=== PATIENT | male | born 1970 | race Caucasian/White ===

== ENCOUNTER → 2021-04-30 13:31 | Outpatient (BNVA) | payer SELFPAY | PROVIDERS: Visit Provider Physician Assistant | DX: Z02.79 Encounter for issue of other medical certificate (principal) ==

== ENCOUNTER 2024-04-11 11:56 | Emergency (ER) | payer MEDICAID, SELFPAY ==
--- NOTE | ~2024-04-11 | CT_ITS ---
CLINICAL HISTORY: low back pain CT lumbar spine without contrast Comparison: None Findings: Vertebral alignment is within normal limits. No acute fractures or dislocations. Bilateral pars defects at L5-S1 favored to be chronic. No listhesis. Disc bulge at L5-S1 without significant spinal canal or foraminal stenosis. Normal visualized abdominal contents. IMPRESSION: 1. No acute osseous injury. 2. Bilateral L5-S1 pars defects, likely chronic, without spondylolisthesis. This document has been electronically signed by: Kevyn Cabello MD on 04/11/2024 18:25:28
--- NOTE | ~2024-04-11 | US_ITS ---
EXAMINATION: US DOPPLER VENOUS LOWER EXTREMITY, LEFT CLINICAL INFORMATION: Left lower extremity pain. COMPARISON: None available. TECHNIQUE: Color-flow triplex imaging with spectral analysis and compression Doppler were performed on the left lower extremity. FINDINGS: Respiratory variation, normal compression and augmented flow are noted throughout the left lower extremity. The visualized common femoral vein, superficial femoral vein, profunda femoral vein, popliteal vein and midcalf peroneal and posterior tibial venous segments show no evidence of deep venous thrombosis. There is no Arana's cyst. US/US venous duplex LE LT IMPRESSION: No acute deep venous thrombosis involving the left lower extremity. Negative exam. Electronically signed by: Nilesh Henley MD 04/11/2024 03:11 PM EST
--- NOTE | ~2024-04-11 | CT_ITS ---
CLINICAL HISTORY: left flank pain CT abdomen and pelvis without contrast Comparison: None Findings: Small hiatal hernia. Visualized lungs are clear. Hepatic steatosis. Calcified granuloma in the spleen. Spleen is otherwise normal. Mild peripancreatic haziness. Gallbladder and adrenal glands are within normal limits. No hydronephrosis. No urolithiasis. Colonic diverticulosis without acute inflammation. No bowel obstruction, pneumatosis or pneumoperitoneum. Pelvic contents unremarkable. Normal appendix. The bones are intact. Mild disc bulge at L5-S1 without significant spinal canal or neural foraminal stenosis. Bilateral pars defects at L5-S1, favored to be chronic. IMPRESSION. Mild peripancreatic haziness. Correlate with lipase. Otherwise no acute findings. This document has been electronically signed by: Kevyn Cabello MD on 04/11/2024 18:28:59
[2024-04-11 12:25] VITALS: BP 143/74; PULSE 102; RESP 20; TEMP 37.5; O2SAT 98; BMI 32.9
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
[2024-04-11] MEDS: Ketorolac Tromethamine 30 MG/ML VIAL IM (13:59)
[2024-04-11 15:58] LABS: Basophils Absolute Auto 0.1 X10*3/uL (0.0-0.2); Basophils Percent Auto 0.3 % (0-2); Eosinophils Absolute Auto 0.1 X10*3/uL (0.0-0.4); Eosinophils Percent Auto 0.4 % (0-4); Imm Gran Abs Auto 0.08 X10*3/uL (0.00-0.03); Imm Gran Pct Auto 0.5 % (0.0-0.4); Lymphocytes Absolute Auto 2.1 X10*3/uL (1.2-4.9); Lymphocytes Percent Auto 13.9 % (20-40); MANUAL DIFF FLAG SCAN; Mean Corpuscular HGB Conc 35.6 g/dl (31.0-36.0); Mean Corpuscular Hemoglobin 30.8 pg (27.0-33.0); Mean Corpuscular Volume 86.7 fL (80.0-98.0); Mean Platelet Volume 9.7 fL (9.4-12.4); Monocytes Absolute Auto 1.9 X10*3/uL (0.1-1.2); Monocytes Percent Auto 12.3 % (2-11); Neutrophils Absolute Auto 11.1 x10*3/uL (2.0-8.3); Neutrophils Percent Auto 72.6 % (45-73); Platelet Count 280 X10*3/uL (160-400); Red Blood Count 5.19 X10*6/uL (4.60-5.80); Red Cell Distribution Width 12.1 % (11.0-16.0); SCAN SMEAR FLAG 1; White Blood Count 15.3 X10*3/uL (4.8-10.8)
[2024-04-11 16:21] LABS: Alanine Aminotransferase 34 U/L (0-40); Albumin Level 4.2 g/dL (3.5-5.0); Anion Gap 13 (12-20); Aspartate Amino Transferase 38 U/L (5-37); Bilirubin Total 0.6 mg/dL (0.0-1.0); Blood Urea Nitrogen 11 mg/dL (9-16); Carbon Dioxide 24 mmol/L (22-29); Chloride 106 mmol/L (96-108); Creatinine Clr Calc Pharmacy 106.7; Estimated Glomerular Filt Rate > 60; Glucose Random 100 mg/dL (60-115); Potassium 4.9 mmol/L (3.3-5.1); Sodium 138 mmol/L (135-145); Total Protein 7.8 g/dL (6.5-8.0)
[2024-04-11 16:23] LABS: Alkaline Phosphatase 62 U/L (39-117); Lipase 20 U/L (8-78)
[2024-04-11 16:26] LABS: SLIDE REVIEW VERIFIED
[2024-04-11 16:31] VITALS: RESP 16
[2024-04-11] MEDS: Morphine Sulfate 4 MG/ML CARTRIDGE IVPUSH (16:31)
[2024-04-11] MEDS: ondansetron HCL 4 MG/2 ML VIAL IVPUSH (16:31)
[2024-04-11] MEDS: diazePAM 10 MG/2 ML CARTRIDGE 2.5 MG IVPUSH (16:32)
[2024-04-11] MEDS: methylPREDNISolone Sod Succ 125 MG/2 ML VIAL 60 MG IVPUSH (16:32)
[2024-04-11 17:54] VITALS: BP 106/80; PULSE 90; RESP 13; TEMP 36.7; O2SAT 96
[2024-04-11] MEDS: Morphine Sulfate 10 MG/ML CARTRIDGE 8 MG IVPUSH (19:03)
[2024-04-11 21:56] VITALS: BP 138/83; PULSE 99; RESP 16; TEMP 36.6; O2SAT 97
[2024-04-11 22:00] VITALS: BP 190/79; PULSE 69; RESP 22; O2SAT 97
[2024-04-11] MEDS: methocarbamoL 750 MG TABLET 1500 MG PO (22:19)
[2024-04-11] MEDS: oxyCODONE HCl Immed Release 5 MG TABLET PO (22:19)
[2024-04-11 22:29] VITALS: BP 190/79; PULSE 69; RESP 22; TEMP 36.7; O2SAT 97
== END 2024-04-11 22:29 | disposition home or self-care (01) ==
PROVIDERS: Physician Assistant; Emergency Provider Student in an Organized Health Care Education/Training Program
DX: M54.16 Radiculopathy, lumbar region (principal); M54.50 Low back pain, unspecified; R60.0 Localized edema; M79.662 Pain in left lower leg; R10.2 Pelvic and perineal pain; M79.605 Pain in left leg; Z79.899 Other long term (current) drug therapy
CPT/HCPCS: 36415; 72131; 74176; 80053; 83690; 85025; 93971; 96372; 96374; 96375; 96376; 99283; 99284; J1885; J2270; J2405; J2919; J3360

== ENCOUNTER → 2024-04-11 13:56 | Outpatient (BNV) | payer MEDICAID, SELFPAY | PROVIDERS: Emergency Provider Student in an Organized Health Care Education/Training Program; Visit Provider Radiology Diagnostic Radiology | DX: M54.9 Dorsalgia, unspecified (principal); M79.662 Pain in left lower leg | CPT/HCPCS: 72131; 74176; 93971 ==

== ENCOUNTER 2024-04-27 09:28 | Outpatient (AMB) | payer MEDICAID, SELFPAY ==
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
[2024-04-27 09:38] VITALS: BP 183/111; PULSE 105; BMI 33.3
== END 2024-04-27 10:08 | disposition home or self-care (01) ==
PROVIDERS: PCP Internal Medicine; Referring Provider Nurse Practitioner Family; Visit Provider Registered Nurse Emergency
DX: S46.819A Strain of other muscles, fascia and tendons at shoulder and upper arm level, unspecified arm, initial encounter (principal); M53.3 Sacrococcygeal disorders, not elsewhere classified; M51.369 Other intervertebral disc degeneration, lumbar region without mention of lumbar back pain or lower extremity pain
CPT/HCPCS: 99204

== ENCOUNTER → 2024-04-27 09:28 | Outpatient (BNVA) | payer MEDICAID, SELFPAY | PROVIDERS: PCP Internal Medicine; Referring Provider Nurse Practitioner Family; Visit Provider Registered Nurse Emergency | DX: S46.811A Strain of other muscles, fascia and tendons at shoulder and upper arm level, right arm, initial encounter (principal); M53.3 Sacrococcygeal disorders, not elsewhere classified; M51.360 Other intervertebral disc degeneration, lumbar region with discogenic back pain only; W22.8XXA Striking against or struck by other objects, initial encounter; Y93.9 Activity, unspecified; Y92.9 Unspecified place or not applicable; Y99.9 Unspecified external cause status | CPT/HCPCS: 99212 ==

== ENCOUNTER 2024-05-07 11:48 | Emergency (ER) | payer MEDICAID, SELFPAY ==
--- NOTE | ~2024-05-07 | XR_ITS ---
EXAMINATION: XR LUMBOSACRAL SPINE CLINICAL INFORMATION: pain COMPARISON: Collated to CT dated April 11, 2024. TECHNIQUE: Three views of the lumbosacral spine. FINDINGS: Mild endplate sclerosis throughout the lower thoracic and lower lumbar spine. Bilateral spondylolysis pars interarticulares, L5-S1. No acute cortical disruption or gross malalignment. No lytic or blastic lesions. XR/XR lumbar spine 2-3V IMPRESSION: Spondylolysis pars interarticulares L5-S1 without gross listhesis. Electronically signed by: Nilesh Henley MD 05/07/2024 01:47 PM ADA
--- NOTE | ~2024-05-07 | XR_ITS ---
EXAMINATION: XR CHEST CLINICAL INFORMATION: cough COMPARISON: None available. TECHNIQUE: 2 views of the chest were obtained. FINDINGS: No consolidation, pleural effusion or pneumothorax. No hyperinflation. Cardiomediastinal silhouette size is normal. Osseous structures are intact. XR/XR chest 2V IMPRESSION: No acute airspace disease. Electronically signed by: Nilesh Henley MD 05/07/2024 01:45 PM EST
[2024-05-07 13:22] VITALS: BP 177/99; PULSE 90; RESP 20; TEMP 36.6; O2SAT 98; BMI 30.9
--- NOTE | 2024-05-07 13:23 | ED.GENADULT ---
HPI - General Adult General Chief complaint: Upper Respiratory Symptoms Stated complaint: congestion popped back Time Seen by Provider: 05/07/24 21:35 History of Present Illness ED Provider: Diane ROWLAND narrative: The patient is a 54-year-old man who has felt unwell for about 1 week with a cough and congestion, runny nose, and facial pain. Two days ago he was coughing and he felt a sudden pop in his lower back and he has had a lot of back pain since then. He has had problems with back pain for awhile. He was seen here in the emergency room last month on April 11 and was felt to have a left lumbar radiculopathy. On April 27 he followed up with the Pain [facility] here. He was prescribed topical diclofenac and oral gabapentin. Related Data Previous Rx's ?Medication ?Instructions ?Recorded methocarbamol 750 mg tablet 1,500 mg (2 x 750 mg) PO Q8H PRN 04/11/24 pain, moderate #24 tabs diclofenac sodium 3 % topical gel 1 appl topical BID #100 grams 04/27/24 gabapentin 300 mg capsule 300 mg PO TID #90 caps 04/27/24 amoxicillin 500 mg tablet 500 mg PO TID 7 days #21 tabs 05/07/24 cyclobenzaprine 10 mg tablet 10 mg PO TID PRN back pain #14 tabs 05/07/24 ibuprofen 400 mg tablet 400 mg PO Q6H PRN pain #14 tabs 05/07/24 Allergies Allergy/AdvReac Type Severity Reaction Status Date / Time meloxicam Allergy Unknown Nausea and Verified 05/07/24 13:25 Vomiting [facility] Past Medical History Medical History (Updated 05/07/24 @ 22:03 by Javy Contreras MD) Vertigo Social History Social History (Updated 04/27/24 @ 12:33 by Frieda Meeks APRN, AUTO MECH[employer]ICS TEACHER) Advance Directives: No Advance Directives Information Provided: Yes Do you have a plan to hurt others: No Plan Physical Exam ED Vital Signs: Vital Signs - 24 hr 05/07/24 13:22 05/07/24 21:07 Temperature 97.9 F 97.6 F Pulse Rate 90 79 Respiratory Rate 20 20 Blood Pressure 177/99 H 131/90 H Pulse Oximetry 98 97 Oxygen Delivery Method Room Air Room Air BMI result Body Mass Index 30.9 Course Course Course Narrative: MOISES, this is a rapid medical exam performed by Anurag Sanches please refer to primary provider for complete H&P- 54-year-old male presents for evaluation of cough, flu-like symptoms and lower back pain. He reports his symptoms started 6 days ago. He reports he has been in bed all week. Plan for viral swabs, chest x-ray and lumbar spine x-ray. Medications Administered Discontinued Medications Generic Name Dose Route Start Last Admin Trade Name Freq PRN Reason Stop Dose Admin Acetaminophen 975 mg 05/07/24 15:38 05/07/24 15:41 Acetaminophen 325 Mg Tablet PO 05/07/24 15:39 975 mg ONCE ONE Administration Medical Decision Making Lab Data Labs: Lab Results 05/07/24 Range/Units 14:01 Influenza Type A (PCR) NEGATIVE (Negative) Influenza Type B (PCR) NEGATIVE (Negative) RSV RNA Qual (PCR) NEGATIVE (Negative) SARS-CoV-2 RNA (RT-PCR) NEGATIVE (Negative) Discharge Plan Discharge Clinical Impression: Sinusitis, Low back pain Patient Disposition: Home, Self-Care Additional Instructions: Your chest x-ray does not show a pneumonia or other sign of lung infection. You have tested negative for the flu, COVID, and a virus called RSV. The x-ray of your lower back does not show any misalignment of your vertebra. You has been started on a course of amoxicillin for possible case of sinusitis. Please take this medication 3 times a day as prescribed. Drink lot of fluids. Warm beverages like hot tea or hot broth may be helpful. For pain you may take: 2 extra-strength acetaminophen tablets up to 3 times per day. Ibuprofen every 6 hours as needed. Cyclobenzaprine as a muscle relaxant that may help your low back pain as well. You may take this up to 3 times a day. This medication may make you drowsy. No driving on cyclobenzaprine. You may continue the gabapentin you were previously prescribed. Please follow up with your regular doctors. Also please try to stop smoking. Return to the emergency room if significantly worse. Prescriptions: New amoxicillin 500 mg tablet 500 mg PO TID 7 Days Qty: 21 0RF ibuprofen 400 mg tablet 400 mg PO Q6H PRN (Reason: pain) Qty: 14 0RF cyclobenzaprine 10 mg tablet 10 mg PO TID PRN (Reason: back pain) Qty: 14 0RF No Action methocarbamol 750 mg tablet 1,500 mg PO Q8H PRN (Reason: pain, moderate) Qty: 24 0RF diclofenac sodium 3 % gel 1 appl topical BID Qty: 100 0RF Rx Instructions: apply to most painful area twice daily as needed for pain gabapentin 300 mg capsule 300 mg PO TID Qty: 90 3RF Referrals: [facility] [Provider Group] Samuel Fields MD [Physician] - Print Language: Panamanian
[2024-05-07 15:11] LABS: Influenza A PCR NEGATIVE (Negative); Influenza B PCR NEGATIVE (Negative); Resp Syncy Virus RNA Qual PCR NEGATIVE (Negative); SARS COV2 PCR INHOUSE NEGATIVE (Negative)
[2024-05-07] MEDS: Acetaminophen 325 MG TABLET 975 MG PO ×2 (15:41→22:12)
[2024-05-07 21:07] VITALS: BP 131/90; PULSE 79; RESP 20; TEMP 36.4; O2SAT 97
[2024-05-07] MEDS: Cyclobenzaprine HCl 10 MG TABLET PO (22:12)
[2024-05-07] MEDS: Amoxicillin 500 MG CAPSULE PO (22:12)
[2024-05-07] MEDS: Ketorolac Tromethamine 30 MG/ML VIAL IM (22:12)
[2024-05-07 22:17] VITALS: BP 131/90; PULSE 79; RESP 20; TEMP 36.4; O2SAT 97
== END 2024-05-07 22:18 | disposition home or self-care (01) ==
PROVIDERS: Physician Assistant; Emergency Provider Emergency Medicine
DX: J32.9 Chronic sinusitis, unspecified (principal); M54.50 Low back pain, unspecified; R05.9 Cough, unspecified; R09.89 Other specified symptoms and signs involving the circulatory and respiratory systems; R51.9 Headache, unspecified; Z03.818 Encounter for observation for suspected exposure to other biological agents ruled out
CPT/HCPCS: 0241U; 71046; 72100; 96372; 99283; 99284; J1885

== ENCOUNTER → 2024-05-07 13:24 | Outpatient (BNV) | payer MEDICAID, SELFPAY | PROVIDERS: Visit Provider Radiology Diagnostic Radiology | DX: M54.50 Low back pain, unspecified (principal); R05.9 Cough, unspecified | CPT/HCPCS: 71046; 72100 ==

== ENCOUNTER 2024-06-06 10:31 | Outpatient (AMB) | payer MEDICAID, SELFPAY ==
[2024-06-06 10:33] VITALS: BP 147/96; PULSE 92; O2SAT 99; BMI 31.6
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
== END 2024-06-06 11:04 | disposition home or self-care (01) ==
LOC: HO.PMC 10:32
PROVIDERS: Visit Provider Registered Nurse Emergency
DX: S46.819A Strain of other muscles, fascia and tendons at shoulder and upper arm level, unspecified arm, initial encounter (principal); M53.3 Sacrococcygeal disorders, not elsewhere classified; M51.369 Other intervertebral disc degeneration, lumbar region without mention of lumbar back pain or lower extremity pain
CPT/HCPCS: 99213

== ENCOUNTER → 2024-06-06 10:31 | Outpatient (BNVA) | payer MEDICAID, SELFPAY | PROVIDERS: Visit Provider Registered Nurse Emergency | DX: S46.819D Strain of other muscles, fascia and tendons at shoulder and upper arm level, unspecified arm, subsequent encounter (principal); M53.3 Sacrococcygeal disorders, not elsewhere classified; M51.369 Other intervertebral disc degeneration, lumbar region without mention of lumbar back pain or lower extremity pain | CPT/HCPCS: 99212 ==

== ENCOUNTER 2024-07-04 19:31 | Emergency (ER) | payer MEDICAID, SELFPAY ==
--- NOTE | ~2024-07-04 | US_ITS ---
CLINICAL HISTORY: pain, swelling Venous duplex ultrasound right upper extremity Comparison: None Findings: Accessible deep venous segments are fully compressible with normal Doppler color flow and spectral tracings. IMPRESSION: 1. Negative for right upper extremity deep vein thrombosis. This document has been electronically signed by: David Valero MD on 07/05/2024 00:00:25
--- NOTE | ~2024-07-04 | XR_ITS ---
CLINICAL HISTORY: atraumatic pain 3 view right wrist Comparison: None Findings: Bones intact. No dislocations. No significant loss of joint space, osteophyte, or erosions. No radiopaque foreign body. Mildly diffuse soft tissue swelling. IMPRESSION: 1. No acute fracture This document has been electronically signed by: David Valero MD on 07/05/2024 00:08:09
[2024-07-04 19:36] VITALS: BP 135/101; PULSE 94; RESP 17; TEMP 36.6; O2SAT 98; BMI 32.1
--- NOTE | 2024-07-04 19:37 | ED.GENADULT ---
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 He uses his hands a great deal. He says that several days ago he developed pain and swelling in his left hand. He went to the emergency room at [facility] because of those symptoms and had an x-ray of his hand or wrist which was negative. He was advised to follow up with the specialist, possibly a hand surgeon. He says that since then he has been resting his hand. He has a TENS unit because of back pain. He has been applying the TENS unit to his left arm and has been treating his left arm with the device and he feels that the left hand has gotten a lot better. 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 He had a lot of work to do. By the end of a shift today his right wrist and hand and forearm were hurting a great deal. He developed swelling. He says that the symptoms are similar to what he had experienced in his left arm few days ago only more severe. He comes to the emergency room today because of this right arm pain and swelling. No fever, sweats, chills. No chest pain or shortness of breath. No numbness in the fingers. He indicates that the pain is maximal on the dorsum of the right wrist. He has pain trying to make a fist. He does not have any numbness in the hand or the arm. Related Data Previous Rx's ?Medication ?Instructions ?Recorded methocarbamol 750 mg tablet 1,500 mg (2 x 750 mg) PO Q8H PRN 04/11/24 pain, moderate #24 tabs diclofenac sodium 3 % topical gel 1 appl topical BID #100 grams 04/27/24 amoxicillin 500 mg tablet 500 mg PO TID 7 days #21 tabs 05/07/24 cyclobenzaprine 10 mg tablet 10 mg PO TID PRN back pain #14 tabs 05/07/24 ibuprofen 400 mg tablet 400 mg PO Q6H PRN pain #14 tabs 05/07/24 pregabalin 100 mg capsule (Lyrica) 100 mg PO BID #60 caps 06/06/24 Allergies Allergy/AdvReac Type Severity Reaction Status Date / Time meloxicam Allergy Unknown Nausea and Verified 07/04/24 19:38 Vomiting Review of Systems Review of Systems: Yes all other systems are reviewed and are negative [facility] Past Medical History Medical History (Updated 07/05/24 @ 06:05 by Agustina Mcneill) Vertigo Physical Exam ED Vital Signs: Vital Signs - 24 hr 07/04/24 19:36 07/04/24 20:00 07/04/24 22:00 Temperature 97.9 F 97.8 F 98.3 F Pulse Rate 94 87 88 Respiratory Rate 17 16 16 Blood Pressure 135/101 H 170/101 H 149/80 H Pulse Oximetry 98 99 98 Oxygen Delivery Method Room Air Room Air Room Air BMI result Body Mass Index 32.1 Const Other: The patient is a 54-year-old male who was awake and alert and seems very uncomfortable. He was actually sitting on the floor next to his stretcher with his arms on the stretcher as if to keep his arms elevated. HENMT Other: Face is symmetrical, mucous membranes moist. Eyes General: appearance normal, both eyes and all related structures Neck Neck: Yes normal visual inspection, Yes full ROM and Yes no lymphadenopathy Resp Other: Slight wheezes bilaterally. No increased work of breathing. Cardio Rate: regular rate Rhythm: regular rhythm Heart sounds: S1 normal heart sound present and S2 normal heart sound present Skin Other: There is some generalized swelling to the dorsum of the right hand. No definite swelling to the wrist. Skin is intact. There is no discoloration. Neuro Other: The patient is awake and alert with normal mental status. Cranial nerves are grossly intact. The patient has intact sensation in the right arm and hand. He is able to move the right arm. He has limited motion of the fingers of the right hand but this seemed to be primarily because of pain. He cannot fully close his fist. He cannot fully extend his fingers. However he is able to flex and extend the fingers to a certain range of motion. He is able to flex and extend the wrist through a certain range of motion as well. Extrem Other: The patient has some soft tissue swelling to the dorsum of the right hand of the distal right forearm. There does not seem to be any well localized area of swelling however and does not seem to be any specific joint which is swollen. He can move his right shoulder and his right elbow fairly easily. He has pain when he moves his right wrist and the fingers of the right hand. I do not appreciate any distinct tenderness to the muscles of the forearm. I think all of the forearm compartments seems soft and are not markedly tender. patient seems to have his greatest area of tenderness in the dorsum of the right hand and along the dorsum of the right wrist and distal forearm. Course Course Course Narrative: RME, this is a rapid medical exam performed by Anurag Sanches please refer to primary provider for complete H&P- 54 year old male presents fo revaluation of bilateral hand pain and swelling, right greater than left. He has mild edema to the dorsal left hand and moderate edema to the dorsal right hand. Plan for labs including inflammatory markers Medications Administered Discontinued Medications Generic Name Dose Route Start Last Admin Trade Name Clement PRN Reason Stop Dose Admin Ketorolac Tromethamine 30 mg 07/04/24 22:41 07/04/24 22:46 Ketorolac Tromethamine 30 Mg/Ml Vial IM 07/04/24 22:42 30 mg ONCE ONE Administration Ondansetron HCl 4 mg 07/04/24 23:58 07/05/24 00:05 Ondansetron Odt 4 Mg Tab.Rapdis TRANSLINGU 07/04/24 23:59 4 mg ONCE ONE Administration Medical Decision Making Medical Decision Making [facility] Narrative: The patient is a 54-year-old male who is here for evaluation of pain in the right hand and wrist. 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 He says that he was recently seen at his primary care doctor's office and also at the emergency room at [facility] over the past couple of weeks because of pain in his left wrist and hand. He says that he was given a provisional diagnosis of Dupuytren's contracture and was referred to a hand surgeon. he says that he followed up with his chiropractor who used a TENS unit to the painful area of the left hand and that the patient, who has his own TENS unit at home, continued to treat his left hand with this device at home over the last few days. 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 The patient's pain was such that when I 1st encountered him he was sitting on the floor of the emergency room with his arms on the stretcher as if to elevate the arms. He looked uncomfortable. However the right hand seems to be neurovascularly intact. Compartments of the muscles of the forearm of the right arm did not seem significantly tender or tense to palpation. His pain seems to be primarily in the dorsum of the hand and the wrist. I do not think his description of the symptoms or his physical exam is suggestive of a focal joint arthropathy or septic arthritis or gout. My overall impression is that this seems to be more of an overuse syndrome causing severe pain. the patient has unremarkable labs with regard to his CBC, ESR, and CRP. He has normal renal function. an x-ray of the right wrist is unremarkable. A DVT ultrasound of the right arm is negative. Patient receive limited relief from an injection of ketorolac. He was then given an oxycodone and an IM injection of lorazepam. I 1st I thought he was somewhat better after this but he continued to seem to have great deal of pain and so he was given an IM injection of hydromorphone as well. I placed the patient in a volar splint using Ortho Glass, cast padding, and Yuniel bandages. The patient was observed. Ice was applied. After period of observation I removed this plan to re-evaluate him. Again I felt the compartments of the forearm seemed soft and did not seem to be the region of significant pain or tenderness. Specifically I did not feel that the extensor compartment was obviously a site of tenseness ortenderness. The area of significant pain and tenderness seems to remain the dorsum of the distal forearm, the wrist, and the dorsum of the hand generally. ultimately I felt he was appropriate for discharge to follow-up with orthopedics. He was given a prescription for oxycodone And ibuprofen. He is advised to keep the wrist elevated. He needs to take several days if not longer off work and rest the arm. He was given a sling to help keep the wrist elevated. he should call the orthopedic office in the morning. He should return to the emergency room if significantly worse at any time. Lab Data 07/04/24 19:46 07/04/24 19:46 Labs: Lab Results 07/04/24 Range/Units 19:46 WBC 14.8 H (4.8-10.8) X10*3/uL RBC 4.86 (4.60-5.80) X10*6/uL Hgb 15.0 (14.0-18.0) g/dl Hct 41.2 L (42.0-52.0) % MCV 84.8 (80.0-98.0) fL MCH 30.9 (27.0-33.0) pg MCHC 36.4 H (31.0-36.0) g/dl RDW 12.6 (11.0-16.0) % Plt Count 300 (160-400) X10*3/uL MPV 9.6 (9.4-12.4) fL Immature Gran % (Auto) 0.5 H (0.0-0.4) % Neut % (Auto) 63.9 (45-73) % Lymph % (Auto) 22.6 (20-40) % [place] % (Auto) 10.7 (2-11) % Eos % (Auto) 1.6 (0-4) % Baso % (Auto) 0.7 (0-2) % Lymph # (Auto) 3.4 (1.2-4.9) X10*3/uL [place] # (Auto) 1.6 H (0.1-1.2) X10*3/uL Eos # (Auto) 0.2 (0.0-0.4) X10*3/uL Baso # (Auto) 0.1 (0.0-0.2) X10*3/uL Abs Immat Gran (auto) 0.07 H (0.00-0.03) X10*3/uL Absolute Neuts (auto) 9.5 H (2.0-8.3) x10*3/uL Absolute Nucleated RBC 0.000 (0.0-0.012) X10*3/uL Nucleated RBC % (auto) 0.0 (0.0-0.2) /100WBC Smear Tech's Comments VERIFIED ESR 6 (0-15) MM/HR Sodium 137 (135-145) mmol/L Potassium 4.2 (3.3-5.1) mmol/L Chloride 107 (96-108) mmol/L Carbon Dioxide 25 (22-29) mmol/L Anion Gap 9 L (12-20) BUN 16 (9-16) mg/dL Creatinine 0.90 (0.5-1.4) mg/dL Estim Creat Clear Calc 101.9 Estimated GFR > 60 Random Glucose 100 (60-115) mg/dL Calcium 9.0 (8.4-10.2) mg/dL Total Creatine Kinase 102 (38-174) U/L C-Reactive Protein 0.68 H (< or = 0.50) mg/dL Discharge Plan Discharge Clinical Impression: Right wrist pain Patient Disposition: Home, Self-Care Prescriptions: No Action methocarbamol 750 mg tablet 1,500 mg PO Q8H PRN (Reason: pain, moderate) Qty: 24 0RF amoxicillin 500 mg tablet 500 mg PO TID 7 Days Qty: 21 0RF ibuprofen 400 mg tablet 400 mg PO Q6H PRN (Reason: pain) Qty: 14 0RF cyclobenzaprine 10 mg tablet 10 mg PO TID PRN (Reason: back pain) Qty: 14 0RF diclofenac sodium 3 % gel 1 appl topical BID Qty: 100 0RF Rx Instructions: apply to most painful area twice daily as needed for pain pregabalin [Lyrica] 100 mg capsule 100 mg PO BID Qty: 60 0RF Rx Instructions: Discontinue gabapentin prior to starting this medication Discharge Date/Time: 07/05/24 02:50 Print Language: Moldovan
[2024-07-04 19:52] LABS: Basophils Absolute Auto 0.1 X10*3/uL (0.0-0.2); Basophils Percent Auto 0.7 % (0-2); Eosinophils Absolute Auto 0.2 X10*3/uL (0.0-0.4); Eosinophils Percent Auto 1.6 % (0-4); Hematocrit 41.2 % (42.0-52.0); Imm Gran Abs Auto 0.07 X10*3/uL (0.00-0.03); Imm Gran Pct Auto 0.5 % (0.0-0.4); Lymphocytes Absolute Auto 3.4 X10*3/uL (1.2-4.9); Lymphocytes Percent Auto 22.6 % (20-40); MANUAL DIFF FLAG SCAN; Mean Corpuscular HGB Conc 36.4 g/dl (31.0-36.0); Mean Corpuscular Hemoglobin 30.9 pg (27.0-33.0); Mean Corpuscular Volume 84.8 fL (80.0-98.0); Mean Platelet Volume 9.6 fL (9.4-12.4); Monocytes Absolute Auto 1.6 X10*3/uL (0.1-1.2); Monocytes Percent Auto 10.7 % (2-11); Neutrophils Absolute Auto 9.5 x10*3/uL (2.0-8.3); Neutrophils Percent Auto 63.9 % (45-73); Platelet Count 300 X10*3/uL (160-400); Red Blood Count 4.86 X10*6/uL (4.60-5.80); Red Cell Distribution Width 12.6 % (11.0-16.0); SCAN SMEAR FLAG 1; White Blood Count 14.8 X10*3/uL (4.8-10.8)
[2024-07-04 20:00] VITALS: BP 170/101; PULSE 87; RESP 16; TEMP 36.6; O2SAT 99
[2024-07-04 20:06] LABS: Anion Gap 9 (12-20); Blood Urea Nitrogen 16 mg/dL (9-16); C Reactive Protein 0.68 mg/dL (< or = 0.50); Carbon Dioxide 25 mmol/L (22-29); Chloride 107 mmol/L (96-108); Creatinine Clr Calc Pharmacy 101.9; Estimated Glomerular Filt Rate > 60; Glucose Random 100 mg/dL (60-115); Potassium 4.2 mmol/L (3.3-5.1); Sodium 137 mmol/L (135-145)
[2024-07-04 20:30] LABS: Erythrocyte Sedimentation Rate 6 MM/HR (0-15); SLIDE REVIEW VERIFIED
[2024-07-04 22:00] VITALS: BP 149/80; PULSE 88; RESP 16; TEMP 36.8; O2SAT 98
--- NOTE | 2024-07-04 22:26 | PC.NURSE ---
Patient reports 10/10 pain in b/l hands with edema, patient denies any injury. Patient offered Tylenol for pain management, patient refused Tylenol at this time. Heating packs provided to patient per his request. Patient is awaiting to be seen by ED provider.
[2024-07-04] MEDS: Ketorolac Tromethamine 30 MG/ML VIAL IM (22:46)
--- NOTE | 2024-07-04 22:49 | PC.NURSE ---
Patient medicated with Toradol 30 mg IM.
[2024-07-05] MEDS: Ondansetron ODT 4 MG TAB.RAPDIS TRANSLINGU (00:05)
[2024-07-06 23:39] LABS: A. Phagocytphilium DNA,RT-PCR NOT DETECTED (NOT DETECTED); Babesia Microti DNA, RT-PCR NOT DETECTED (NOT DETECTED); Borrelia Miyamotoi,DNA RT-PCR NOT DETECTED (NOT DETECTED); E.Chaffeensis DNA RT-PCR NOT DETECTED (NOT DETECTED); Lyme(Borrelia ssp)DNA RT-PCR NOT DETECTED (NOT DETECTED)
== END 2024-07-05 02:50 | disposition home or self-care (01) ==
PROVIDERS: Physician Assistant; Emergency Provider Emergency Medicine
DX: M25.531 Pain in right wrist (principal); R60.0 Localized edema; Z79.899 Other long term (current) drug therapy
CPT/HCPCS: 36415; 73110; 80048; 82550; 85025; 85652; 86140; 87468; 87469; 87478; 87484; 87798; 93971; 96372; 99284; J1885

== ENCOUNTER → 2024-07-04 22:39 | Outpatient (BNV) | payer MEDICAID, SELFPAY | PROVIDERS: Emergency Provider Emergency Medicine; Visit Provider Radiology Diagnostic Radiology | DX: M79.621 Pain in right upper arm (principal); R22.31 Localized swelling, mass and lump, right upper limb; M25.531 Pain in right wrist | CPT/HCPCS: 73110; 93971 ==

== ENCOUNTER 2024-07-05 20:24 | Emergency (ER) | payer MEDICAID, SELFPAY ==
--- NOTE | ~2024-07-05 | XR_ITS ---
CLINICAL HISTORY: Pain swelling 3 view left hand Comparison: None Findings: No fractures or dislocations. No significant arthritic change. No erosions. No radiopaque foreign body. Mildly diffuse soft tissue swelling. IMPRESSION: 1. No acute fracture This document has been electronically signed by: David Valero MD on 07/05/2024 21:13:45
--- NOTE | ~2024-07-05 | XR_ITS ---
CLINICAL HISTORY: Pain swelling 4 view left wrist Comparison: None Findings: No fractures or dislocations. No significant arthritic change or erosions. No radiopaque foreign body. Mildly diffuse soft tissue swelling. IMPRESSION: 1. No acute fracture This document has been electronically signed by: David Valero MD on 07/05/2024 21:13:33
[2024-07-05 20:34] VITALS: BP 134/86; PULSE 92; RESP 16; TEMP 36.4; O2SAT 97; BMI 31.8
--- NOTE | 2024-07-05 20:34 | ED_ITS ---
HPI - Extremity Injury (Upper) General Chief Complaint: Extremity Injury, Upper Stated Complaint: left hand and arm swelling; right hand swollen Time Seen by Provider: 07/06/24 01:27 Source: patient Mode of arrival: ambulatory Limitations: no limitations History of Present Illness ED Provider: Rocky Cobb DO HPI narrative: 54-year-old male past medical history of bulging lumbar disc and sacroiliac joint function on the left presents to the ED for swelling and pain of both left and right hand despite taking oxycodone and ibuprofen at home. 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 He has not decreased his workload. He was seen here yesterday and had x-rays that were unremarkable. He has no fevers, chills, nausea, vomiting or pain or swelling of his upper arms. He states his fingers feel tight and tingling. No history of autoimmune disorders or family history of autoimmune diseases. Symptoms have not improved from yesterday. He has been on Augmentin for an ear infection. His symptoms are consistent with that which were documented yesterday from his visit here. Patient states he has not had a tetanus vaccine update in approximately 30 years. Per record review from yesterday he did have labs drawn which showed a mild nonspecific leukocytosis mild elevation of CRP without elevation of ESR. Related Data Previous Rx's ?Medication ?Instructions ?Recorded methocarbamol 750 mg tablet 1,500 mg (2 x 750 mg) PO Q8H PRN 04/11/24 pain, moderate #24 tabs diclofenac sodium 3 % topical gel 1 appl topical BID #100 grams 04/27/24 amoxicillin 500 mg tablet 500 mg PO TID 7 days #21 tabs 05/07/24 cyclobenzaprine 10 mg tablet 10 mg PO TID PRN back pain #14 tabs 05/07/24 ibuprofen 400 mg tablet 400 mg PO Q6H PRN pain #14 tabs 05/07/24 pregabalin 100 mg capsule (Lyrica) 100 mg PO BID #60 caps 06/06/24 prednisone 20 mg tablet 60 mg (3 x 20 mg) PO DAILY 5 days 07/06/24 #15 tabs Allergies Allergy/AdvReac Type Severity Reaction Status Date / Time meloxicam Allergy Unknown Nausea and Verified 07/05/24 20:36 Vomiting Review of Systems Review of Systems: Yes all other systems are reviewed and are negative PMFSH Past Medical History Medical History (Updated 07/06/24 @ 01:51 by Rocky Cobb DO) Vertigo Social History Social History (Updated 04/27/24 @ 12:33 by Frieda Meeks APRN, [employer]) Advance Directives: No Advance Directives Information Provided: Yes Do you have a plan to hurt others: No Plan Physical Exam Vital Signs: Vital Signs: Last Vital Signs Temp 97.3 F 07/06/24 01:50 Pulse 92 07/06/24 01:50 Resp 16 07/06/24 01:50 BP 113/86 07/06/24 01:50 Pulse Ox 97 07/06/24 01:50 O2 Del Method Room Air 07/06/24 01:50 BMI result Body Mass Index 31.8 Constitutional: ?Alert, oriented, speaking in full sentences HEENT: ?Normocephalic, atraumatic. Eyes: ?PERRL, EOMI Neck: ?Supple, nontender Chest: ?No chest wall tenderness Respiratory: no increased work of breathing Cardio: ?2+ radial pulses symmetrically GI: ?nondistended Back: ?Normal range of motion Skin: ?No rash, no lesions Neuro: ?Alert and oriented to person, place and time, moves all 4 extremities, no focal deficits 5/5 strength of the upper extremities symmetrically, sensation fully intact Extremities: ?Patient has equal edema and tightness of all 5 fingers of the bilateral hands which are equally mildly tender to palpation and fair amount of pain elicited with extension of all fingers as well as flexion and extension of the wrist bilaterally. None of these findings tract proximally about the forearms or upper arms. There are no signs of erythema tracking up the arms. Psych: ?Calm, alert and cooperative, appropriate behavior Course Course Course Narrative: This is a Rapid Medical Exam performed in triage by Jessica Kirkpatrick PA-C. Full HPI, ROS and PE to be performed by primary ED provider. 54-year-old male presenting to the ED c/o left hand/wrist pain and swelling x yesterday. Patient was evaluated in our ED last night for similar symptoms on the contralateral side had labs and imaging performed. States he has been taking oxycodone for pain which is helping with the right side however not the left. PE: Bilateral hand swelling noted with mild limited ROM. No erythema or ecchymosis Plan: Left hand x-ray Medications Administered Discontinued Medications Generic Name Dose Route Start Last Admin Trade Name Hoangq PRN Reason Stop Dose Admin Diphtheria/Tetanus/Acell Pertussis 0.5 ml 07/06/24 01:48 07/06/24 02:01 Diphth,Pertus(Acell),Tet Adult 0.5 Ml Syringe IM 07/06/24 01:49 0.5 ml .ONCE ONE Administration Morphine Sulfate 4 mg 07/06/24 01:48 07/06/24 02:02 Morphine Sulfate 4 Mg/Ml Cartridge IM 07/06/24 01:49 4 mg ONCE ONE Administration Protocol Prednisone 60 mg 07/06/24 01:48 07/06/24 02:01 Prednisone 20 Mg Tablet PO 07/06/24 01:49 60 mg ONCE ONE Administration Medical Decision Making Medical Decision Making [facility] Narrative: Patient presenting with cool edema and tightness with discomfort of the bilateral all 5 fingers and hands. This is not consistent with cellulitis. X- ray images of the hand and wrist per my independent interpretation show no acute bony abnormality. Interpreted by Radiology as diffuse swelling. At this time, there are no signs of lymphangitis or systemic symptoms. No signs of flexor tenosynovitis. No other Dangerous etiologies suspected at this time. It is possible that the patient has an autoimmune syndrome as this appears to be dactylitis. We will treat with steroids instead of ibuprofen here and at home. The patient save a 1 time dose of IM morphine. His significant other is driving him home. We will also update his Tdap due to request. He is instructed to follow up with his primary care provider and a lumber marker for further evaluation and return with any worsening or progression of his symptoms. Patient is content with this plan. Discharge Plan Discharge Clinical Impression: Bilateral hand swelling Patient Disposition: Home, Self-Care Additional Instructions: Tdap has been updated today. X-ray imaging showed no fracture. You received a dose of morphine. You received a steroid called prednisone. Please take this daily instead of the ibuprofen. Please attempt to stop tobacco use as this will help your symptoms. Avoid work until your symptoms improve. Follow-up with a lumber marker and your primary care provider. Return with any fevers over 100 degrees F, shaking chills, spreading swelling or redness of your arms or any other acute changes or concerns. Prescriptions: New prednisone 20 mg tablet 60 mg PO DAILY 5 Days Qty: 15 0RF No Action methocarbamol 750 mg tablet 1,500 mg PO Q8H PRN (Reason: pain, moderate) Qty: 24 0RF amoxicillin 500 mg tablet 500 mg PO TID 7 Days Qty: 21 0RF ibuprofen 400 mg tablet 400 mg PO Q6H PRN (Reason: pain) Qty: 14 0RF cyclobenzaprine 10 mg tablet 10 mg PO TID PRN (Reason: back pain) Qty: 14 0RF diclofenac sodium 3 % gel 1 appl topical BID Qty: 100 0RF Rx Instructions: apply to most painful area twice daily as needed for pain pregabalin [Lyrica] 100 mg capsule 100 mg PO BID Qty: 60 0RF Rx Instructions: Discontinue gabapentin prior to starting this medication Referrals: Neel Barkley PA [Physician Dimension Mill Worker] - Print Language: Cymraes
[2024-07-06 01:50] VITALS: BP 113/86; PULSE 92; RESP 16; TEMP 36.3; O2SAT 97
[2024-07-06] MEDS: predniSONE 20 MG TABLET 60 MG PO (02:01)
[2024-07-06] MEDS: Diphth,Pertus(ACell),Tet Adult 0.5 ML SYRINGE IM (02:01)
[2024-07-06] MEDS: Morphine Sulfate 4 MG/ML CARTRIDGE IM (02:02)
[2024-07-06 02:09] VITALS: BP 0/0; PULSE 0; RESP 0; TEMP -17.7; TEMP 0; O2SAT 0
== END 2024-07-06 02:11 | disposition home or self-care (01) ==
LOC: HO.ED 07-06 01:58
PROVIDERS: Emergency Provider Emergency Medicine
DX: L03.012 Cellulitis of left finger (principal); L03.011 Cellulitis of right finger; M25.532 Pain in left wrist; R60.0 Localized edema; Z79.899 Other long term (current) drug therapy; Z23 Encounter for immunization
CPT/HCPCS: 73110; 73130; 90471; 90715; 96372; 99284; J2270

== ENCOUNTER → 2024-07-05 20:41 | Outpatient (BNV) | payer MEDICAID, SELFPAY | PROVIDERS: Visit Provider Radiology Diagnostic Radiology | DX: M25.532 Pain in left wrist (principal); M79.642 Pain in left hand | CPT/HCPCS: 73110; 73130 ==

== ENCOUNTER 2024-09-26 23:17 | Emergency (ER) | payer MEDICAID, SELFPAY ==
--- NOTE | 2024-09-26 | ECG_ITS ---
Test Reason : CP Blood Pressure : */* mmHG Vent. Rate : 105 BPM Atrial Rate : 105 BPM P-R Int : 192 ms QRS Dur : 88 ms QT Int : 330 ms P-R-T Axes : 48 21 32 degrees QTcB Int : 436 ms Sinus tachycardia Otherwise normal ECG No previous ECGs available Referred By: Generic ED Physician Electronically Signed By: CRAIG PRAKASH MD
--- NOTE | ~2024-09-26 | XR_ITS ---
CLINICAL HISTORY: rotator cuff tndonitis 3 view right shoulder Comparison: None provided Findings: No fractures or dislocations. No significant arthritic change. No erosions. No radiopaque foreign body. IMPRESSION: 1. No acute findings This document has been electronically signed by: Robbie Rushing MD on 09/27/2024 02:16:16
[2024-09-26 23:18] VITALS: BP 141/87; PULSE 111; RESP 20; TEMP 37.1; O2SAT 99; BMI 31.3
--- NOTE | 2024-09-26 23:45 | ED.EXTPRO ---
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 as pain is getting worse for last few days got worse earlier today with pain radiating to the anterior part of the chest whenever he moves his item no paresthesia no weakness patient took ibuprofen and oxycodone earlier without much relief has not seen any orthopedics yet Related Data Previous Rx's ?Medication ?Instructions ?Recorded methocarbamol 750 mg tablet 1,500 mg (2 x 750 mg) PO Q8H PRN 04/11/24 pain, moderate #24 tabs diclofenac sodium 3 % topical gel 1 appl topical BID #100 grams 04/27/24 amoxicillin 500 mg tablet 500 mg PO TID 7 days #21 tabs 05/07/24 cyclobenzaprine 10 mg tablet 10 mg PO TID PRN back pain #14 tabs 05/07/24 ibuprofen 400 mg tablet 400 mg PO Q6H PRN pain #14 tabs 05/07/24 pregabalin 100 mg capsule (Lyrica) 100 mg PO BID #60 caps 06/06/24 prednisone 20 mg tablet 60 mg (3 x 20 mg) PO DAILY 5 days 07/06/24 #15 tabs cyclobenzaprine 10 mg tablet 10 mg PO Q8H #20 tabs 09/27/24 ibuprofen 600 mg tablet 600 mg PO Q6H PRN fever or pain 09/27/24 #30 tabs morphine 15 mg immediate release 15 mg PO Q8H PRN pain #15 tabs 09/27/24 tablet prednisone 20 mg tablet 40 mg (2 x 20 mg) PO DAILY #10 tabs 09/27/24 Allergies Allergy/AdvReac Type Severity Reaction Status Date / Time meloxicam Allergy Unknown Nausea and Verified 09/26/24 23:20 Vomiting Review of Systems Review of Systems: Yes all other systems are reviewed and are negative [facility] Past Medical History Medical History Vertigo Social History Social History Advance Directives: No Advance Directives Information Provided: Yes Do you have a plan to hurt others: No Plan Physical Exam Vital Signs: Vital Signs: Last Vital Signs Temp 98.7 F 09/26/24 23:18 Pulse 111 H 09/26/24 23:18 Resp 20 09/26/24 23:18 BP 141/87 H 09/26/24 23:18 Pulse Ox 99 09/26/24 23:18 O2 Del Method Room Air 09/26/24 23:18 BMI result Body Mass Index 31.3 Appearance: Alert. Oriented X3. No acute distress. Eyes: PERRLA, No Nystagmus ENT: Pharynx normal. Oral Mucosa moist Neck: Normal inspection. Neck supple. CVS: Normal heart rate and rhythm. Pulses normal. Respiratory: No respiratory distress. Equal air entry bilateral, no wheezing/rales/rhonchi Abdomen: Soft and nontender. Bowel sounds are present, no mass palpable, no CVA tenderness Skin: Skin warm and dry. Normal skin color. Normal skin turgor. Extremities: No lower extremity edema. 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 No motor deficit. No sensory deficit.No cerebellar signs , cranial nerves II-XII intact Medications Administered Discontinued Medications Generic Name Dose Route Start Last Admin Trade Name Freq PRN Reason Stop Dose Admin Dexamethasone 10 mg 09/27/24 00:09 09/27/24 00:27 Dexamethasone 2 Mg Tablet PO 09/27/24 00:10 10 mg ONCE ONE Administration Morphine Sulfate 15 mg 09/27/24 00:09 09/27/24 00:27 Morphine Sulfate Immed Release 15 Mg Tablet PO 09/27/24 00:10 15 mg ONCE ONE Administration Medical Decision Making Medical Decision Making [facility] Narrative: Patient clinically with the right rotator cuff tendinitis x-ray negative for fracture or dislocation labs are stable will give patient's sling advised to follow with Orthopedics Lab Data [facility] Lab Attestation statement: I reviewed the patient's lab results. 09/26/24 23:57 09/26/24 23:57 Labs: Lab Results 09/26/24 Range/Units 23:57 WBC 15.1 H (4.8-10.8) X10*3/uL RBC 4.70 (4.60-5.80) X10*6/uL Hgb 14.4 (14.0-18.0) g/dl Hct 40.5 L (42.0-52.0) % MCV 86.2 (80.0-98.0) fL MCH 30.6 (27.0-33.0) pg MCHC 35.6 (31.0-36.0) g/dl RDW 12.6 (11.0-16.0) % Plt Count 327 (160-400) X10*3/uL MPV 9.7 (9.4-12.4) fL Immature Gran % (Auto) 0.7 H (0.0-0.4) % Neut % (Auto) 71.8 (45-73) % Lymph % (Auto) 13.0 L (20-40) % [place] % (Auto) 12.9 H (2-11) % Eos % (Auto) 1.1 (0-4) % Baso % (Auto) 0.5 (0-2) % Lymph # (Auto) 2.0 (1.2-4.9) X10*3/uL [place] # (Auto) 1.9 H (0.1-1.2) X10*3/uL Eos # (Auto) 0.2 (0.0-0.4) X10*3/uL Baso # (Auto) 0.1 (0.0-0.2) X10*3/uL Abs Immat Gran (auto) 0.10 H (0.00-0.03) X10*3/uL Absolute Neuts (auto) 10.8 H (2.0-8.3) x10*3/uL Absolute Nucleated RBC 0.000 (0.0-0.012) X10*3/uL Nucleated RBC % (auto) 0.0 (0.0-0.2) /100WBC Smear Tech's Comments VERIFIED Sodium 139 (135-145) mmol/L Potassium 4.7 (3.3-5.1) mmol/L Chloride 104 (96-108) mmol/L Carbon Dioxide 26 (22-29) mmol/L Anion Gap 14 (12-20) BUN 11 (9-16) mg/dL Creatinine 1.15 (0.5-1.4) mg/dL Estim Creat Clear Calc 78.8 Estimated GFR > 60 Random Glucose 104 (60-115) mg/dL Calcium 8.8 (8.4-10.2) mg/dL Total Bilirubin 0.5 (0.0-1.0) mg/dL AST 28 (5-37) U/L ALT 29 (0-40) U/L Alkaline Phosphatase 66 (39-117) U/L Troponin I High Sens < 2.7 (<3.5-35.0) ng/L Total Protein 6.8 (6.5-8.0) g/dL Albumin 4.2 (3.5-5.0) g/dL Independent Interpretation I performed an independent interpretation of an: EKG Interpretation: Sinus tachycardia with heart rate of 105 beats per minute normal interval normal axis no acute ST-T no acute ischemia Radiology Impression Discussion of test interpretation with radiology: I have reviewed the radiologist's reading. Discharge Plan Discharge Clinical Impression: Right rotator cuff tendinitis Patient Disposition: Home, Self-Care Instructions: Rotator Cuff Tendinitis (ED) Additional Instructions: Rest your right shoulder Avoid raising your right arm above head Pain medication and muscle relaxant as advised Follow with Orthopedics Prescriptions: New cyclobenzaprine 10 mg tablet 10 mg PO Q8H Qty: 20 0RF prednisone 20 mg tablet 40 mg PO DAILY Qty: 10 0RF ibuprofen 600 mg tablet 600 mg PO Q6H PRN (Reason: fever or pain) Qty: 30 0RF morphine 15 mg tablet 15 mg PO Q8H PRN (Reason: pain) Qty: 15 0RF Rx Instructions: Partial Fill upon patient request. No Action prednisone 20 mg tablet 60 mg PO DAILY 5 Days Qty: 15 0RF methocarbamol 750 mg tablet 1,500 mg PO Q8H PRN (Reason: pain, moderate) Qty: 24 0RF amoxicillin 500 mg tablet 500 mg PO TID 7 Days Qty: 21 0RF ibuprofen 400 mg tablet 400 mg PO Q6H PRN (Reason: pain) Qty: 14 0RF cyclobenzaprine 10 mg tablet 10 mg PO TID PRN (Reason: back pain) Qty: 14 0RF diclofenac sodium 3 % gel 1 appl topical BID Qty: 100 0RF Rx Instructions: apply to most painful area twice daily as needed for pain pregabalin [Lyrica] 100 mg capsule 100 mg PO BID Qty: 60 0RF Rx Instructions: Discontinue gabapentin prior to starting this medication Referrals: Seun Siu MD [Physician, Orthopedics] Referral Note: r rotator cuff tendonitis Print Language: German
--- NOTE | 2024-09-27 00:02 | PC.NURSE ---
Pt placed on cafeteria monitor- HR 104 Sinus tach. EKG done by tech. Labs drawn by RN. provider at bedside. will continue to monitor.
[2024-09-27 00:09] LABS: Hematocrit 40.5 % (42.0-52.0); Hemoglobin 14.4 g/dl (14.0-18.0); Imm Gran Abs Auto 0.10 X10*3/uL (0.00-0.03); Imm Gran Pct Auto 0.7 % (0.0-0.4); Lymphocytes Absolute Auto 2.0 X10*3/uL (1.2-4.9); MANUAL DIFF FLAG SCAN; Mean Corpuscular HGB Conc 35.6 g/dl (31.0-36.0); Mean Corpuscular Hemoglobin 30.6 pg (27.0-33.0); Mean Corpuscular Volume 86.2 fL (80.0-98.0); NRBC Abs Auto 0.000 X10*3/uL (0.0-0.012); NRBC Pct Auto 0.0 /100WBC (0.0-0.2); Platelet Count 327 X10*3/uL (160-400); Red Blood Count 4.70 X10*6/uL (4.60-5.80); SCAN SMEAR FLAG 1; White Blood Count 15.1 X10*3/uL (4.8-10.8)
[2024-09-27 00:23] LABS: Alanine Aminotransferase 29 U/L (0-40); Albumin Level 4.2 g/dL (3.5-5.0); Alkaline Phosphatase 66 U/L (39-117); Anion Gap 14 (12-20); Aspartate Amino Transferase 28 U/L (5-37); Blood Urea Nitrogen 11 mg/dL (9-16); Calcium 8.8 mg/dL (8.4-10.2); Carbon Dioxide 26 mmol/L (22-29); Chloride 104 mmol/L (96-108); Creatinine Clr Calc Pharmacy 78.8; Estimated Glomerular Filt Rate > 60; Potassium 4.7 mmol/L (3.3-5.1); Sodium 139 mmol/L (135-145); Total Protein 6.8 g/dL (6.5-8.0)
[2024-09-27] MEDS: Morphine Sulfate Immed Release 15 MG TABLET PO (00:27)
[2024-09-27 00:32] LABS: Troponin-I High Sensitivity < 2.7 ng/L (<3.5-35.0)
[2024-09-27 01:18] VITALS: BP 141/87; PULSE 111; RESP 20; TEMP 37.1; O2SAT 99
[2024-09-27 01:20] VITALS: BP 141/87; PULSE 111; RESP 20; TEMP 37.1; O2SAT 99
== END 2024-09-27 01:22 | disposition home or self-care (01) ==
PROVIDERS: Emergency Provider Internal Medicine
DX: M75.101 Unspecified rotator cuff tear or rupture of right shoulder, not specified as traumatic (principal); M25.511 Pain in right shoulder
CPT/HCPCS: 36415; 73030; 80053; 84484; 85025; 93005; 99283; 99285; J8540

== ENCOUNTER → 2024-09-26 23:48 | Outpatient (BNV) | payer MEDICAID, SELFPAY | PROVIDERS: Emergency Provider Internal Medicine; Visit Provider Internal Medicine Cardiovascular Disease | DX: R00.0 Tachycardia, unspecified (principal) | CPT/HCPCS: 93010 ==

== ENCOUNTER → 2024-09-27 00:08 | Outpatient (BNV) | payer MEDICAID, SELFPAY | PROVIDERS: Emergency Provider Internal Medicine; Visit Provider Radiology Diagnostic Radiology | DX: M75.101 Unspecified rotator cuff tear or rupture of right shoulder, not specified as traumatic (principal) | CPT/HCPCS: 73030 ==